=== PATIENT | female | born 1940 | race Caucasian/White ===

== ENCOUNTER 2017-05-04 10:39 | Emergency (ER) | payer MEDICARE, BC ==
[2017-05-04 11:25] LABS: HEMATOCRIT 40 % (35-47); MEAN CORPUSCULAR HGB CONC 32.9 gm/dl (32.0-36.0); MEAN CORPUSCULAR VOLUME 97 fL (81-99)
[2017-05-04 11:43] LABS: BASOPHILS % (MANUAL) 1 % (0-3); EOSINOPHILS % (MANUAL) 4 % (0-9); LYMPHOCYTES % (MANUAL) 8 % (10-50)
[2017-05-04 11:44] LABS: ALBUMIN 3.9 gm/dl (3.4-5.0); ALT 13 IU/L (14-63); CALCIUM 8.8 mg/dl (8.5-10.1); GLOM FILT RATE 80 mL/min (>60); NORMAL RBCS PRESENT; POTASSIUM 3.6 mMol/L (3.5-5.1); SODIUM 144 mMol/L (136-145); THYROID STIMULATING HORMONE 0.171 uIU/ml (0.358-3.740)
[2017-05-04 12:17] LABS: APPEARANCE,URINE Slightly Cloudy; BILIRUBIN,URINE NEGATIVE (NEGATIVE); COLOR,URINE Yellow; GLUCOSE, URINE (UA) NEGATIVE (NEGATIVE); KETONES,URINE 1+ (NEGATIVE); LEUKOCYTE ESTERASE ,URINE NEGATIVE (NEGATIVE); NITRATE,URINE NEGATIVE (NEGATIVE); OCCULT BLOOD,URINE NEGATIVE (NEG-TRACE)
[2017-05-04 12:33] LABS: RBC,URINE 0-2 (0-3AV/HPF); WBC,URINE 0-2 (0-5AV/HPF)
[2017-05-04 12:34] LABS: AMPHETAMINES NEGATIVE (NEGATIVE); METHADONE NEGATIVE (NEGATIVE); OPIATES(OP13) NEGATIVE (NEGATIVE); OXYCODONE(OXY) NEGATIVE (NEGATIVE); PROPOXYPHENE(PPX) NEGATIVE (NEGATIVE); TRICYCLIC ANTIDEPRESSANTS NEGATIVE (NEGATIVE)
[2017-05-04 15:02] LABS: SALICYLATE < 2.8 mg/dl (2.8-30.0)
[2017-05-04 17:03] VITALS: BP 133/87; PULSE 75; RESP 16; TEMP 97.8; O2SAT 99
== END 2017-05-04 18:40 | disposition short-term general hospital (02) | DRG 885 ==
LOC: ED 10:39
DX: F20.0 Paranoid schizophrenia (principal)
CPT/HCPCS: 36415; 70450; 80053; 80305; 80307; 81001; 82150; 84443; 85007; 85027; 99284

== ENCOUNTER 2017-10-19 17:52 | Emergency (ER) | payer MEDICARE, BC ==
[2017-10-19] MEDS ORDERED: FENTANYL 100MCG/2ML SOL IV ONE (18:03)
[2017-10-19] MEDS ORDERED: SODIUM CHLORIDE 0.9% 1000ML 1,000 ML IV SCH (18:15)
[2017-10-19] MEDS ORDERED: FENTANYL 100MCG/2ML SOL ONE (18:15)
[2017-10-19 18:19] LABS: BASOPHILS % (AUTO) 1 % (0-3); EOSINOPHILS % (AUTO) 3 % (0-9); HEMATOCRIT 41 % (35-47); MEAN CORPUSCULAR HGB CONC 33.3 gm/dl (32.0-36.0); MEAN CORPUSCULAR VOLUME 92 fL (81-99); MONOCYTES % (AUTO) 9.3 % (0-12); NEUTROPHILS % (AUTO) 65.4 % (37-80)
[2017-10-19 18:38] LABS: ALBUMIN 3.6 gm/dl (3.4-5.0); ALT 18 IU/L (14-63); CALCIUM 8.6 mg/dl (8.5-10.1); GLOM FILT RATE 67 mL/min (>60); POTASSIUM 3.4 mMol/L (3.5-5.1); SODIUM 140 mMol/L (136-145)
[2017-10-19 19:33] VITALS: PULSE 88; TEMP 98.8
[2017-10-19 19:58] VITALS: RESP 27; O2SAT 98
[2017-10-19 20:17] VITALS: BP 136/72
== END 2017-10-19 20:35 | disposition home or self-care (01) | DRG 392 ==
LOC: ED 17:52
DX: K59.01 Slow transit constipation (principal); R06.02 Shortness of breath; R19.00 Intra-abdominal and pelvic swelling, mass and lump, unspecified site
CPT/HCPCS: 36415; 74177; 80053; 83880; 84484; 85025; 85610; 93005; 96365; 96366; 96374; 99284; 99285; J3010; Q9967

== ENCOUNTER 2018-04-29 10:59 | Emergency (ER) | payer MEDICARE, BC ==
[2018-04-29 11:16] VITALS: PULSE 84; RESP 18; TEMP 97.9
[2018-04-29] MEDS ORDERED: SODIUM CHLORIDE 0.9% 1000ML 1,000 ML IV ONE (12:04)
[2018-04-29 12:26] LABS: BASOPHILS % (AUTO) 1 % (0-3); EOSINOPHILS % (AUTO) 4 % (0-9); HEMATOCRIT 41 % (35-47); HEMOGLOBIN 12.8 gm/dl (12.0-15.5); MEAN CORPUSCULAR HEMOGLOBIN 30.5 pg (27.0-32.0); MEAN CORPUSCULAR HGB CONC 31.4 gm/dl (32.0-36.0); MEAN CORPUSCULAR VOLUME 97 fL (81-99)
[2018-04-29 12:29] LABS: APPEARANCE,URINE Slightly Cloudy; BILIRUBIN,URINE NEGATIVE (NEGATIVE); COLOR,URINE Yellow; GLUCOSE, URINE (UA) NEGATIVE (NEGATIVE); KETONES,URINE TRACE (NEGATIVE); LEUKOCYTE ESTERASE ,URINE 2+ (NEGATIVE); NITRATE,URINE NEGATIVE (NEGATIVE); OCCULT BLOOD,URINE NEGATIVE (NEG-TRACE); UROBILINOGEN,URINE 0.2 (0.2-1.0 EU)
[2018-04-29 12:40] LABS: ALBUMIN 3.3 gm/dl (3.4-5.0); BILIRUBIN,TOTAL 0.3 mg/dl (0.2-1.0); CALCIUM 8.4 mg/dl (8.5-10.1); CREATININE 0.69 mg/dl (0.60-1.00); POTASSIUM 4.1 mMol/L (3.5-5.1); TOTAL PROTEIN 6.8 gm/dl (6.4-8.2)
[2018-04-29 12:45] LABS: CARBON DIOXIDE 28.3 mEq/L (21-32)
[2018-04-29 12:45] LABS: BACTERIA 2+ (< 1+); CRYSTALS NEGATIVE (0-3 AVE/HPF); RBC,URINE NEGATIVE (0-3AV/HPF)
[2018-04-29 15:20] VITALS: BP 135/87; O2SAT 99
== END 2018-04-29 15:06 | disposition home or self-care (01) | DRG 690 ==
LOC: ED 10:59
DX: N30.00 Acute cystitis without hematuria (principal)
CPT/HCPCS: 36415; 70450; 80053; 81001; 85025; 87088; 96365; 96366; 99283; 99284

== ENCOUNTER 2018-05-17 07:05 | Emergency (ER) | payer MEDICARE, BC ==
[2018-05-17 07:32] LABS: BASOPHILS % (AUTO) 1 % (0-3); EOSINOPHILS % (AUTO) 5 % (0-9); HEMATOCRIT 42 % (35-47); HEMOGLOBIN 12.8 gm/dl (12.0-15.5); MEAN CORPUSCULAR HEMOGLOBIN 30.1 pg (27.0-32.0); MEAN CORPUSCULAR HGB CONC 30.4 gm/dl (32.0-36.0); MONOCYTES % (AUTO) 7.6 % (0-12)
[2018-05-17 07:33] LABS: MEAN CORPUSCULAR VOLUME 99 fL (81-99)
[2018-05-17 07:38] VITALS: TEMP 97.8
[2018-05-17 07:45] LABS: ALBUMIN 3.4 gm/dl (3.4-5.0); BILIRUBIN,TOTAL 0.3 mg/dl (0.2-1.0); CALCIUM 8.8 mg/dl (8.5-10.1); CARBON DIOXIDE 28.8 mEq/L (21-32); CREATININE 0.78 mg/dl (0.60-1.00); POTASSIUM 3.7 mMol/L (3.5-5.1)
[2018-05-17] MEDS ORDERED: ACETAMI/HYDROCO 325/10 TAB PO ONE (08:40)
[2018-05-17] MEDS ORDERED: APAP/HYDROCODONE 325/5 TAB PO ONE (09:00)
[2018-05-17 09:04] LABS: APPEARANCE,URINE Clear; BILIRUBIN,URINE NEGATIVE (NEGATIVE); COLOR,URINE Yellow; GLUCOSE, URINE (UA) NEGATIVE (NEGATIVE); KETONES,URINE NEGATIVE (NEGATIVE); LEUKOCYTE ESTERASE ,URINE NEGATIVE (NEGATIVE); NITRATE,URINE NEGATIVE (NEGATIVE); OCCULT BLOOD,URINE NEGATIVE (NEG-TRACE); PH,URINE 8.5; UROBILINOGEN,URINE 0.2 (0.2-1.0 EU)
[2018-05-17] MEDS ORDERED: APAP/HYDROCODONE 325/5 TAB ONE (09:10)
[2018-05-17 09:14] VITALS: RESP 20; O2SAT 99
[2018-05-17 09:18] LABS: BACTERIA NEGATIVE (< 1+); CRYSTALS NEGATIVE (0-3 AVE/HPF); EPITHELIAL CELLS 0-2 (SQUAMOUS); RBC,URINE NEG (0-3AV/HPF); WBC,URINE 0-1 (0-5AV/HPF)
[2018-05-17 10:23] VITALS: BP 153/69; PULSE 69
== END 2018-05-17 12:35 | disposition home or self-care (01) | DRG 556 ==
LOC: ED 07:05
DX: M25.561 Pain in right knee (principal); M25.562 Pain in left knee; W19.XXXA Unspecified fall, initial encounter; F03.90 Unspecified dementia, unspecified severity, without behavioral disturbance, psychotic disturbance, mood disturbance, and anxiety; R40.2362 Coma scale, best motor response, obeys commands, at arrival to emergency department; R40.2142 Coma scale, eyes open, spontaneous, at arrival to emergency department; R40.2252 Coma scale, best verbal response, oriented, at arrival to emergency department
CPT/HCPCS: 36415; 72192; 73501; 73560; 73700; 80053; 81001; 85025; 99283; 99285; A9270-GY

== ENCOUNTER 2018-05-21 05:38 | Inpatient (IN) | payer MEDICARE, BC ==
[2018-05-21] MEDS ORDERED: SODIUM CHLORIDE 0.9% 1000ML 1,000 ML IV ONE ×2 (06:00)
[2018-05-21] MEDS ORDERED: SODIUM CHLORIDE 0.9% 1000ML 1,000 ML IV SCH (06:00)
[2018-05-21 06:27] LABS: BASOPHILS % (AUTO) 0 % (0-3); EOSINOPHILS % (AUTO) 1 % (0-9); HEMATOCRIT 38 % (35-47); HEMOGLOBIN 12.5 gm/dl (12.0-15.5); LYMPHOCYTES % (AUTO) 6.8 % (10-50); MEAN CORPUSCULAR HEMOGLOBIN 31.4 pg (27.0-32.0); MEAN CORPUSCULAR HGB CONC 32.7 gm/dl (32.0-36.0); MEAN CORPUSCULAR VOLUME 96 fL (81-99); MONOCYTES % (AUTO) 6.9 % (0-12); NEUTROPHILS % (AUTO) 85.1 % (37-80)
[2018-05-21 06:32] LABS: LACTIC ACID 1.9 mMol/L (0.0-2.0)
[2018-05-21] MEDS ORDERED: ACETAMINOPHEN 500 MG 500 MG TAB PO ONE (06:38)
[2018-05-21 06:40] LABS: ALBUMIN 3.2 gm/dl (3.4-5.0); BILIRUBIN,TOTAL 0.4 mg/dl (0.2-1.0); CALCIUM 8.3 mg/dl (8.5-10.1); CARBON DIOXIDE 25.9 mEq/L (21-32); CREATININE 0.81 mg/dl (0.60-1.00); CRP INFLAMMATORY 0.65 mg/dl (0.00-0.33); POTASSIUM 4.3 mMol/L (3.5-5.1); TOTAL PROTEIN 6.6 gm/dl (6.4-8.2)
[2018-05-21] MEDS ORDERED: ACETAMINOPHEN 500 MG 500 MG TAB ONE (07:10)
[2018-05-21 07:20] LABS: APPEARANCE,URINE Clear; BILIRUBIN,URINE NEGATIVE (NEGATIVE); COLOR,URINE Yellow; GLUCOSE, URINE (UA) NEGATIVE (NEGATIVE); KETONES,URINE NEGATIVE (NEGATIVE); LEUKOCYTE ESTERASE ,URINE NEGATIVE (NEGATIVE); NITRATE,URINE NEGATIVE (NEGATIVE); OCCULT BLOOD,URINE NEGATIVE (NEG-TRACE); PH,URINE 7.5; UROBILINOGEN,URINE 0.2 (0.2-1.0 EU)
[2018-05-21] MEDS ORDERED: LEVOFLOXACIN 25 MG/ML 500 MG in SODIUM CHLORIDE 0.9% 100 ML 100 ML IV ONE (07:29)
[2018-05-21 07:42] LABS: BACTERIA TRACE (< 1+); CRYSTALS NEGATIVE (0-3 AVE/HPF); EPITHELIAL CELLS NEGATIVE (SQUAMOUS); RBC,URINE NEGATIVE (0-3AV/HPF); WBC,URINE 0-2 (0-5AV/HPF)
[2018-05-21] MEDS ORDERED: LEVOFLOXACIN 25 MG/ML SOL IV ONE (08:44)
[2018-05-21] MEDS ORDERED: ACETAMINOPHEN 325 MG PO PRN (11:50)
[2018-05-21] MEDS ORDERED: QUETIAPINE FUMARATE 25 MG TAB PO PRN (11:50)
[2018-05-21] MEDS: QUETIAPINE FUMARATE 25 MG TAB PO SCH (12:12)
[2018-05-21] MEDS: AMLODIPINE 5 MG TAB PO SCH (12:13)
[2018-05-21] MEDS: DIVALPROEX 250 MG TCP PO SCH ×3 (13:13→22:00)
[2018-05-21] MEDS: FAMOTIDINE 20 MG TAB PO SCH (16:12)
[2018-05-21] MEDS ORDERED: QUETIAPINE FUMARATE 200 MG PO SCH (18:00)
[2018-05-21] MEDS ORDERED: DIVALPROEX 250 MG TAB.ER.24H PO ONE ×2 (20:41→21:15)
[2018-05-21] MEDS ORDERED: RANITIDINE HCL 150 MG TAB PO SCH (21:00)
[2018-05-21] MEDS ORDERED: DIVALPROEX 250 MG TAB.ER.24H PO SCH (21:30)
[2018-05-22] MEDS: FAMOTIDINE 20 MG TAB PO SCH (06:48)
[2018-05-22] MEDS ORDERED: LEVOTHYROXINE SODIUM 50 MCG TAB PO SCH (07:00)
[2018-05-22 07:20] LABS: CALCIUM 7.9 mg/dl (8.5-10.1); CARBON DIOXIDE 23.7 mEq/L (21-32); CREATININE 0.56 mg/dl (0.60-1.00); POTASSIUM 3.9 mMol/L (3.5-5.1)
[2018-05-22 07:26] LABS: BASOPHILS % (AUTO) 2 % (0-3); EOSINOPHILS % (AUTO) 6 % (0-9); HEMATOCRIT 39 % (35-47); HEMOGLOBIN 12.3 gm/dl (12.0-15.5); LYMPHOCYTES % (AUTO) 23.2 % (10-50); MEAN CORPUSCULAR HEMOGLOBIN 30.8 pg (27.0-32.0); MEAN CORPUSCULAR HGB CONC 31.4 gm/dl (32.0-36.0); MEAN CORPUSCULAR VOLUME 98 fL (81-99); MONOCYTES % (AUTO) 11.6 % (0-12); NEUTROPHILS % (AUTO) 56.7 % (37-80)
[2018-05-22 08:09] VITALS: BP 149/76; PULSE 81; RESP 20; TEMP 98; O2SAT 99
[2018-05-22] MEDS: DIVALPROEX 250 MG TCP PO SCH (09:09)
[2018-05-22] MEDS: AMLODIPINE 5 MG TAB PO SCH (09:10)
[2018-05-22] MEDS: QUETIAPINE FUMARATE 25 MG TAB PO SCH (09:11)
[2018-05-22] MEDS ORDERED: PNEUMOC 13-VAL CONJ-DIP CRM/PF 0.5 ML SYRINGE IM ONE (11:56)
[2018-05-23] MEDS ORDERED: LEVOTHYROXINE SODIUM 112 MCG TAB PO SCH (07:00)
== END 2018-05-22 13:10 | DRG 93 ==
LOC: ED 05:38 → UNDOADMIN 10:51 → ACUTE CARE 10:51
PROVIDERS: ADMIT Family Medicine; ATTEND Family Medicine
PROC: F01K5YZ Range of Motion and Joint Integrity Assessment of Musculoskeletal System - Upper Back / Upper Extremity using Other Equipment (ICD-10-PCS; principal; 2018-05-22)
PROC: F01K0FZ Muscle Performance Assessment of Musculoskeletal System - Upper Back / Upper Extremity using Assistive, Adaptive, Supportive or Protective Equipment (ICD-10-PCS; 2018-05-22)
PROC: F02Z0FZ Bathing/Showering Assessment using Assistive, Adaptive, Supportive or Protective Equipment (ICD-10-PCS; 2018-05-22)
DX: R50.9 Fever, unspecified (principal); D72.829 Elevated white blood cell count, unspecified; M25.561 Pain in right knee; R26.81 Unsteadiness on feet; W19.XXXA Unspecified fall, initial encounter; G31.84 Mild cognitive impairment of uncertain or unknown etiology; G30.9 Alzheimer's disease, unspecified; F02.80 Dementia in other diseases classified elsewhere, unspecified severity, without behavioral disturbance, psychotic disturbance, mood disturbance, and anxiety; R53.1 Weakness; Z91.81 History of falling
CPT/HCPCS: 36415; 71045; 73560; 80048; 80053; 81001; 83880; 84443; 85025; 87040; 90670; 96365; 96366; 99222; 99284; J1956; A9270-GY; G0008

== ENCOUNTER 2018-06-21 12:05 | Emergency (ER) | payer MEDICARE, BC ==
[2018-06-21 12:26] VITALS: TEMP 97.2
[2018-06-21] MEDS ORDERED: SODIUM CHLORIDE 0.9% FLUSH 10 ML SOL IV PRN (12:35)
[2018-06-21] MEDS ORDERED: LABETALOL HYDROCHLORIDE 5 MG/ML SOL IV PRN (12:36)
[2018-06-21] MEDS ORDERED: NICARDIPINE HCL 25 MG in SODIUM CHLORIDE 0.9% 250 ML 250 ML IV PRN (12:36)
[2018-06-21] MEDS ORDERED: ALTEPLASE, RECOMBINANT 50 MG PDS IV ONE ×3 (12:36→12:41)
[2018-06-21 12:40] LABS: BASOPHILS % (AUTO) 1 % (0-3); EOSINOPHILS % (AUTO) 3 % (0-9); HEMATOCRIT 42 % (35-47); HEMOGLOBIN 12.9 gm/dl (12.0-15.5); LYMPHOCYTES % (AUTO) 21.6 % (10-50); MEAN CORPUSCULAR HEMOGLOBIN 30.5 pg (27.0-32.0); MONOCYTES % (AUTO) 8.4 % (0-12); NEUTROPHILS % (AUTO) 65.7 % (37-80)
[2018-06-21] MEDS ORDERED: ONDANSETRON HCL 4 MG/2 ML SOL ONE (12:43)
[2018-06-21 12:44] LABS: MEAN CORPUSCULAR VOLUME 99 fL (81-99)
[2018-06-21] MEDS ORDERED: ONDANSETRON HCL 4 MG/2 ML SOL IV ONE (12:48)
[2018-06-21 12:51] LABS: INR 1.01 (0.86-1.12)
[2018-06-21 12:57] LABS: BLOOD UREA NITROGEN 14 mg/dl (7-18); CALCIUM 8.9 mg/dl (8.5-10.1); CARBON DIOXIDE 29.2 mEq/L (21-32); CHLORIDE 102 mMol/L (98-107); CREATININE 0.84 mg/dl (0.60-1.00); GLUCOSE 99 mg/dl (74-106); POTASSIUM 3.9 mMol/L (3.5-5.1); SODIUM 140 mMol/L (136-145); TROP I < 0.017 ng/ml (0.000-0.056)
[2018-06-21] MEDS ORDERED: SODIUM CHLORIDE 0.9% IV PRN (13:10)
[2018-06-21 15:08] VITALS: RESP 20
[2018-06-21 15:10] VITALS: BP 108/59; PULSE 100; O2SAT 97
== END 2018-06-21 13:29 | disposition short-term general hospital (02) | DRG 948 ==
LOC: ED 12:05
DX: R41.82 Altered mental status, unspecified (principal); R29.711 NIHSS score 11
CPT/HCPCS: 36415; 70450; 80048; 84484; 85025; 85610; 85730; 93005; 96374; 96375; 99291; J2405; J2997